=== PATIENT | male | born 1990 | race African-American/Black ===

== ENCOUNTER 2017-10-21 14:00 | Inpatient (IN) | payer MEDICAID, MEDICARE ==
[~2017-10-21 14:00] MED LIST: BENZ1TAB PO; DIVA250ER PO; HALO5 PO; LEXA10TA PO
[2017-10-21 14:21] VITALS: BP 126/73; PULSE 78; RESP 18; TEMP 98.5; O2SAT 98
--- NOTE | 2017-10-21 15:32 | PD ---
HPI Chief Complaint: Psychiatric Symptoms Time Seen by Provider: 15:31 Travel History International Travel<30 days: No Contact w/Intl Traveler<30days: No Traveled to known affect area: No History of Present Illness HPI 27-year-old male came to the emergency room with history schizophrenia not taking his medications. Blood test was started in triage. Patient denies of any suicidal ideations or homicidal ideations. Vital signs are stable. Patient denies doing any drugs. [facility] Past Medical History Narrative Medical List of his past medical, surgical, social and family history reviewed from the nursing note. Bipolar Disorder: Yes Cardiovascular Problems: No Musculoskeletal: No Neurologic: No Respiratory: No Schizophrenia: Yes Social History Alcohol Use: Yes Tobacco Use: Yes Substance Use: Yes (POT-JESUS) Allergies-Medications (Allergen,Severity, Reaction): Coded Allergies: No Known Allergies (Unverified , 09/01/12) Comments No known drug allergies Reported Meds & Prescriptions Reported Meds & Active Scripts Active Reported Lexapro (Escitalopram Oxalate) 10 Mg Tab 10 Mg PO DAILY Divalproex ER (Divalproex Sodium) 250 Mg Irina 750 Mg PO HS Benztropine (Benztropine Mesylate) 0.5 Mg Tab 2 Mg PO BID Haloperidol 5 Mg Tab 5 Mg PO TID Narrative Medication List of his home medications reviewed from the nursing note. Review of Systems Except as stated in HPI: all other systems reviewed are Neg Physical Exam Narrative GENERAL: Awake, alert, no obvious distress SKIN: Focused skin assessment warm/dry. HEAD: Atraumatic. Normocephalic. EYES: Pupils equal and round. No scleral icterus. No injection or drainage. ENT: No nasal bleeding or discharge. Mucous membranes pink and moist. NECK: Trachea midline. No JVD. CARDIOVASCULAR: Regular rate and rhythm. No murmur appreciated. RESPIRATORY: No accessory muscle use. Clear to auscultation. Breath sounds equal bilaterally. GASTROINTESTINAL: Abdomen soft, non-tender, nondistended. Hepatic and splenic margins not palpable. MUSCULOSKELETAL: No obvious deformities. No clubbing. No cyanosis. No edema. NEUROLOGICAL: Awake and alert. No obvious cranial nerve deficits. Motor grossly within normal limits. Normal speech. PSYCHIATRIC: Appropriate mood and affect; insight and judgment normal. Data Data Last Documented VS Orders Orders Complete Blood Count With Diff (10/21/17 14:22) Thyroid Stimulating Hormone (10/21/17 14:22) Basic Metabolic Panel (Bmp) (10/21/17 14:22) Psych Screen (10/21/17 14:22) Drug Screen, Random Urine (10/21/17 14:22) Alcohol (Ethanol) (10/21/17 14:22) Acetaminophen (Tylenol) (10/21/17 16:15) Diet Regular Basic (10/21/17 Dinner) Admit Order (Ed Use Only) (10/21/17 22:32) Labs Laboratory Tests Test 10/21/17 15:49 White Blood Count 6.8 TH/MM3 Red Blood Count 4.98 MIL/MM3 Hemoglobin 15.4 GM/DL Hematocrit 44.9 % Mean Corpuscular Volume 90.1 FL Mean Corpuscular Hemoglobin 30.9 PG Mean Corpuscular Hemoglobin Concent 34.3 % Red Cell Distribution Width 14.4 % Platelet Count 311 TH/MM3 Mean Platelet Volume 7.7 FL Neutrophils (%) (Auto) 49.5 % Lymphocytes (%) (Auto) 39.1 % Monocytes (%) (Auto) 7.2 % Eosinophils (%) (Auto) 2.9 % Basophils (%) (Auto) 1.3 % Neutrophils # (Auto) 3.3 TH/MM3 Lymphocytes # (Auto) 2.6 TH/MM3 Monocytes # (Auto) 0.5 TH/MM3 Eosinophils # (Auto) 0.2 TH/MM3 Basophils # (Auto) 0.1 TH/MM3 CBC Comment DIFF FINAL Differential Comment Blood Urea Nitrogen 5 MG/DL Creatinine 1.05 MG/DL Random Glucose 84 MG/DL Calcium Level 9.0 MG/DL Sodium Level 139 MEQ/L Potassium Level 4.1 MEQ/L Chloride Level 107 MEQ/L Carbon Dioxide Level 25.8 MEQ/L Anion Gap 6 MEQ/L Estimat Glomerular Filtration Rate 101 ML/MIN Thyroid Stimulating Hormone 3rd Gen 1.090 uIU/ML Urine Opiates Screen NEG Urine Barbiturates Screen NEG Urine Amphetamines Screen NEG Urine Benzodiazepines Screen NEG Urine Cocaine Screen NEG Urine Cannabinoids Screen NEG Ethyl Alcohol Level LESS THAN 3 MG/DL MDM Medical Decision Making Medical Screen Exam Complete: Yes Emergency Medical Condition: Yes Medical Record Reviewed: Yes Differential Diagnosis Psychosis Narrative Course 4:04 PM waiting for the blood test results. Patient will require psych screen after that once medically cleared. Procedures EKG Prior to Arrival: No Getachew,Shravanti R. MD Oct 21, 2017 15:32
[2017-10-21] MEDS ORDERED: DIVA250T3 PO (15:42)
[2017-10-21] MEDS ORDERED: BENZ0.5T PO (15:42)
[2017-10-21] MEDS ORDERED: LEXA10TA PO (15:42)
[2017-10-21] MEDS ORDERED: HALO5TAB PO (15:42)
[2017-10-21] MEDS ORDERED: ACETAMINOPHEN 325 MG TAB PO ONE (16:15)
[2017-10-21 16:50] VITALS: BP 114/75; PULSE 58; RESP 17; O2SAT 95
[2017-10-21 16:51] LABS: AUTOMATED NEUTROPHIL # 3.3 TH/MM3 (1.8-7.7); BASOPHIL # 0.1 TH/MM3 (0-0.2); BASOPHIL % 1.3 % (0.0-2.0); EOSINOPHIL # 0.2 TH/MM3 (0-0.4); EOSINOPHIL % 2.9 % (0.0-4.0); HEMATOCRIT 44.9 % (39.0-51.0); HEMOGLOBIN 15.4 GM/DL (13.0-17.0); LYMPH % 39.1 % (9.0-44.0); LYMPHOCYTE # 2.6 TH/MM3 (1.0-4.8); MEAN CELL VOLUME 90.1 FL (80.0-100.0); MEAN CORPUSCULAR HEMOGLOBIN 30.9 PG (27.0-34.0); MEAN CORPUSCULAR HGB CONC 34.3 % (32.0-36.0); MEAN PLATELET VOLUME 7.7 FL (7.0-11.0); MONO % 7.2 % (0.0-8.0); MONOCYTE # 0.5 TH/MM3 (0-0.9); NEUT % 49.5 % (16.0-70.0); PLATELET COUNT 311 TH/MM3 (150-450); RED BLOOD COUNT 4.98 MIL/MM3 (4.50-5.90); RED CELL DISTRIBUTION WIDTH 14.4 % (11.6-17.2); WHITE BLOOD COUNT 6.8 TH/MM3 (4.0-11.0)
[2017-10-21 17:13] LABS: BICARBONATE 25.8 MEQ/L (21.0-32.0); BLOOD UREA NITROGEN 5 MG/DL (7-18); CHLORIDE 107 MEQ/L (98-107); CREATININE 1.05 MG/DL (0.60-1.30); GLOMERULAR FILTRATION RATE 101 ML/MIN (>89); GLUCOSE,RANDOM 84 MG/DL (74-106); SODIUM (NA) 139 MEQ/L (136-145)
--- NOTE | 2017-10-21 17:39 | PD ---
Data Data Last Documented VS Vital Signs Date Time Temp Pulse Resp B/P (MAP) Pulse Ox O2 Delivery O2 Flow Rate FiO2 10/21/17 16:50 58 17 114/75 (88) 95 Room Air 10/21/17 14:21 98.5 Orders Orders Complete Blood Count With Diff (10/21/17 14:22) Thyroid Stimulating Hormone (10/21/17 14:22) Basic Metabolic Panel (Bmp) (10/21/17 14:22) Psych Screen (10/21/17 14:22) Drug Screen, Random Urine (10/21/17 14:22) Alcohol (Ethanol) (10/21/17 14:22) Acetaminophen (Tylenol) (10/21/17 16:15) Labs Laboratory Tests Test 10/21/17 15:49 White Blood Count 6.8 TH/MM3 Red Blood Count 4.98 MIL/MM3 Hemoglobin 15.4 GM/DL Hematocrit 44.9 % Mean Corpuscular Volume 90.1 FL Mean Corpuscular Hemoglobin 30.9 PG Mean Corpuscular Hemoglobin Concent 34.3 % Red Cell Distribution Width 14.4 % Platelet Count 311 TH/MM3 Mean Platelet Volume 7.7 FL Neutrophils (%) (Auto) 49.5 % Lymphocytes (%) (Auto) 39.1 % Monocytes (%) (Auto) 7.2 % Eosinophils (%) (Auto) 2.9 % Basophils (%) (Auto) 1.3 % Neutrophils # (Auto) 3.3 TH/MM3 Lymphocytes # (Auto) 2.6 TH/MM3 Monocytes # (Auto) 0.5 TH/MM3 Eosinophils # (Auto) 0.2 TH/MM3 Basophils # (Auto) 0.1 TH/MM3 CBC Comment DIFF FINAL Differential Comment Blood Urea Nitrogen 5 MG/DL Creatinine 1.05 MG/DL Random Glucose 84 MG/DL Calcium Level 9.0 MG/DL Sodium Level 139 MEQ/L Potassium Level 4.1 MEQ/L Chloride Level 107 MEQ/L Carbon Dioxide Level 25.8 MEQ/L Anion Gap 6 MEQ/L Estimat Glomerular Filtration Rate 101 ML/MIN Thyroid Stimulating Hormone 3rd Gen 1.090 uIU/ML Urine Opiates Screen NEG Urine Barbiturates Screen NEG Urine Amphetamines Screen NEG Urine Benzodiazepines Screen NEG Urine Cocaine Screen NEG Urine Cannabinoids Screen NEG Ethyl Alcohol Level LESS THAN 3 MG/DL [facility] [place] Supervised Visit with MONALISA: No Narrative Course The patient was initially evaluated by the previous provider and signed out to me at approximately 5:00 PM pending labs for medical clearance for psychiatric evaluation. See her note for further details. Briefly this is a 27-year-old male with history of bipolar disorder who is here voluntarily for psychiatric evaluation for visual and auditory hallucinations. He denies suicidal or homicidal ideation. On exam he is resting comfortably. Appears abnormal insight and normal judgment. No physical complaints. Labs reviewed and the patient is medically cleared for psychiatric evaluation and disposition by them. Diagnosis Primary Impression: Medical clearance for psychiatric admission John Reyes MD Oct 21, 2017 17:38
[2017-10-21 23:10] VITALS: BP 112/81; PULSE 58; RESP 18; TEMP 98.1; O2SAT 100
[2017-10-22] MEDS ORDERED: ALUMINUM/MAGNESIUM/SIMETH 30 ML CUP PO PRN (00:15)
[2017-10-22] MEDS ORDERED: diphenhydrAMINE HCL 50 MG/ML VIAL - HS PRN IM (00:15)
[2017-10-22] MEDS ORDERED: MAGNESIUM HYDROXIDE SUSP 30 ML CUP PO PRN (00:15)
[2017-10-22] MEDS ORDERED: DIVALPROEX SODIUM E.R. 250 MG TAB PO ONE (00:30)
[2017-10-22] MEDS ORDERED: HALOPERIDOL 10 MG TAB PO ONE (00:30)
[2017-10-22] MEDS: diphenhydrAMINE HCL 50 MG CAP - HS PRN PO ×2 (00:49→21:16)
[2017-10-22 05:32] VITALS: BP 125/74; PULSE 62; RESP 18; TEMP 98.4; O2SAT 96
[2017-10-22 06:03] VITALS: BP 125/74; PULSE 62; RESP 18; TEMP 98.4; O2SAT 96
--- NOTE | 2017-10-22 08:52 | HHI.HP ---
Provisional Diagnosis Admission Date Oct 21, 2017 at 22:34 [place] I. 1. Schizoaffective disorder, bipolar type, acute exacerbation [place] II. Deferred Certification of Person's Competence To Provide Express and Informed Consent I have personally examined Anjum GiangJr , a person being served at [facility] on, Oct 22, 2017 08:51. Express and informed consent means consent voluntarily given in writing, by a competent person, after sufficient explanation and disclosure of the subject matter involved to enable the person to make a knowing and willful decision without any element of force, fraud, deceit, duress, or other form of constraint or coercion. This person is 18 years of age or older, is not now known to be incompetent to consent to treatment with a guardian advocate, and does not have a health care surrogate or proxy currently making medical treatment decisions. I have found this person to be one of the following: [x] Competent to provide express and informed consent, as defined above, for voluntary admission to this facility and is competent to provide express and informed consent for treatment. He/she has the consistent capacity to make well reasoned, willful, and knowing decisions concerning his or her medical or mental health treatment. The person fully and consistently understands the purpose of the admission for examination/placement and is fully capable of personally exercising all rights [place] Incompetent to provide express and informed consent to voluntary admission, and this is incompetent to provide express and informed consent to treatment. The person must be transferred to involuntary status and a petition for a guardian advocate filed with the Circuit Court. [] Refusing to provide express and informed consent to voluntary admission but is competent to provide express and informed consent for treatment. The person must be discharged or transferred to involuntary status. Form shall be completed within 24 hours of a person's arrival at the receiving facility and filed in the clinical record of each person: 1. Admitted on a voluntary basis 2. Permitted to provide express and informed consent to his/her own treatment 3. Allowed to transfer from involuntary to voluntary status 4. Prior to permitting a person to consent to his or her own treatment after having been previously found incompetent to consent to treatment. History of Present Illness Capacity: Has Capacity Psych Chief Complaint: Psychosis HPI Mr. Giang is a 27-year-old male with a reported history of bipolar disorder /schizophrenia who presented to the emergency department voluntarily complaining of audiovisual hallucinations. Reviewing the electronic medical record, I note that the patient was psychiatrically admitted here in [address] Alcaraz with a discharge diagnosis of schizoaffective disorder. Patient seen and examined with nurse. Chart reviewed. Case discussed with nursing staff. On my examination today, the patient reports that he has been off of his psychotropic medications for the last 2 months. In the setting of this medication nonadherence he has experienced worsening of his psychosis. He reports that he has been experiencing deprecatory auditory hallucinations as well as occasional command auditory hallucinations to self injure. He denies any command auditory hallucinations to hurt others. He denies any genuine suicidal intent and contracts for safety on the inpatient unit. He denies any other hallucinatory experiences except that he does note that he has what sounds like synesthesia, experiencing generalized body pain in response to loud noises. He endorses some paranoia but denies any ideas of reference or feelings of thought manipulation. Mood has been up and down lately. Sleep is poor, particularly in the last several nights. No hypomanic or manic symptoms noted. No severe depressive symptoms noted. Denies any homicidal ideation. Remainder of the psychiatric ROS is negative. No physical complaints. Past psychiatric history: The patient reports previous diagnoses as noted above. He previously followed at the [facility] in [place] although he has apparently been out of treatment for several months at least. His most recent admission was here at [facility]. He denies a history of suicide attempts. Denies a history of violent behavior. He notes that he has been "the best I' ve ever been" when he was taking Haldol 5 mg 3 times daily, Depakote 750 mg a day, Lexapro at uncertain dose and Cogentin 2 mg twice a day. He notes that this regimen "stopped all the voices." He has never been on a long-acting injectable antipsychotic, and I did ask him to consider this option for this hospitalization. Family history: The patient reports that his father has schizophrenia. He denies any family history of suicide or substance use issues. Chemical dependency history: The patient denies any abuse of drugs or alcohol. Social history: The patient is originally from [facility]. He is presently homeless. He apparently had been residing with a female cousin but they are "not getting along." He has some college education. He is on SSI. He denies any history. Denies any legal history. Denies any access to guns or firearms. Denies any mu-ism or spiritual beliefs. Denies any history of physical, verbal or sexual abuse. Review of Systems Except as stated in HPI: all other systems reviewed are Neg Past Family Social History Coded Allergies: No Known Allergies (Unverified , 09/01/12) Past Medical History Patient denies any past medical history Reported Medications Escitalopram (Lexapro) 10 Mg Tab, 10 MG PO DAILY, #30 TAB 0 Refills 10/21/17 Divalproex ER (Divalproex ER) 250 Mg Irina, 750 MG PO HS for Control Seizures, # 90 TAB 0 Refills 10/21/17 Benztropine (Benztropine) 0.5 Mg Tab, 2 MG PO BID, #60 TAB 0 Refills 10/21/17 Haloperidol (Haloperidol) 5 Mg Tab, 5 MG PO TID, TAB 0 Refills 10/21/17 Current Medications Medications (Trade) Dose Ordered Sig/Saul Route Start Time Stop Time Status Last Admin (Atarax) 50 mg Q6H PRN PO 10/22/17 00:15 (Benadryl) 50 mg HS PRN PO 10/22/17 00:15 10/22/17 00:49 (Tylenol) 650 mg Q4H PRN PO 10/22/17 00:15 (Milk Of Magnesia Liq) 30 ml DAILY PRN PO 10/22/17 00:15 (Mag-Al Plus Susp Liq) 30 ml Q6H PRN PO 10/22/17 00:15 (Habitrol 21 Mg Patch.24 Hr) 1 patch DAILY T-DERMAL 10/22/17 09:00 Miscellaneous Information 1 HS T-DERMAL 10/22/17 21:00 (Lexapro) 10 mg DAILY PO 10/22/17 09:00 (Depakote Er) 750 mg HS PO 10/22/17 21:00 (Haldol) 5 mg DAILY@0900,1500,2100 PO 10/22/17 09:00 (Cogentin) 2 mg Q12HR PO 10/22/17 09:00 Patient's Strengths (min. 2) In a monitored setting. Verbally fluent. Physical Exam Physical examination completed by ED provider. On my examination today, the patient appears to be in no acute physical distress. No motor abnormalities noted. Labs and vitals reviewed: Vital Signs Vital Signs Date Time Temp Pulse Resp B/P (MAP) Pulse Ox O2 Delivery O2 Flow Rate FiO2 10/22/17 06:03 98.4 62 18 125/74 (91) 96 10/21/17 16:50 Room Air Lab Results Item Value Date Time White Blood Count 6.8 TH/MM3 10/21/17 1549 Hemoglobin 15.4 GM/DL 10/21/17 1549 Platelet Count 311 TH/MM3 10/21/17 1549 Sodium Level 139 MEQ/L 10/21/17 1549 Potassium Level 4.1 MEQ/L 10/21/17 1549 Chloride Level 107 MEQ/L 10/21/17 1549 Carbon Dioxide Level 25.8 MEQ/L 10/21/17 1549 Blood Urea Nitrogen 5 MG/DL L 10/21/17 1549 Creatinine 1.05 MG/DL 10/21/17 1549 Estimat Glomerular Filtration Rate 101 ML/MIN 10/21/17 1549 Thyroid Stimulating Hormone 3rd Gen 1.090 uIU/ML 10/21/17 1549 Urine Opiates Screen NEG 10/21/17 1549 Urine Barbiturates Screen NEG 10/21/17 1549 Urine Amphetamines Screen NEG 10/21/17 1549 Urine Benzodiazepines Screen NEG 10/21/17 1549 Urine Cocaine Screen NEG 10/21/17 1549 Urine Cannabinoids Screen NEG 10/21/17 1549 Ethyl Alcohol Level LESS THAN 3 MG/DL 10/21/17 1549 EKG reveals sinus rhythm with first-degree AV block. QTc is 395 ms, not prolonged. Mental Status Examination Appearance: Appropriate Consciousness: Alert Orientation: x4 Motor Activity: Other (no motor abnormalities noted) Speech: Unremarkable Language: Adequate Fund of Knowledge: Adequate Attention and Concentration: Adequate Memory: Unremarkable Mood: Other (up-and-down) Affect: Blunt Thought Process & Associations: Intact, Logical, Linear Thought Content: Appropriate Hallucination Type: Auditory (deprecatory, occasional command as noted above) Delusion Type: Paranoid Suicidal Ideation: Yes Suicidal Plan: No Suicidal Intention: No (contracts for safety on the inpatient unit) Homicidal Ideation: No Homicidal Plan: No Homicidal Intention: No Insight: Fair Judgment: Impulsive Assessment & Plan Problem List: (1) Schizoaffective disorder, bipolar type ICD Codes: F25.0 - Schizoaffective disorder, bipolar type Assessment & Plan 27-year-old male with psychiatric history as detailed above presently voluntarily admitted to the inpatient psychiatric unit. On my examination today , the patient reports worsening of psychotic symptoms including occasional command auditory hallucinations to self injure in the setting of medication nonadherence. The patient reports that he has done very well in the past on a regimen of Haldol, Depakote and Lexapro. I will plan to admit the patient to the inpatient unit for safety, observation and stabilization. Admit inpatient. Voluntary status. Haldol 5 mg 3 times daily for psychotic symptoms. To consider long-acting injectable Haldol Decanoate. Cogentin 2 mg twice daily for side effect management. Depakote ER 750 mg at bedtime for mood stabilization. Platelets okay. Check LFTs. Lexapro 10 mg daily for mood. Atarax as needed for anxiety, Benadryl as needed for sleep. R/B/A for all meds reviewed with patient. Lipid panel and hemoglobin A1c in the morning. OT eval. Vitals every shift. Counselor to see and obtain collateral. Encourage participation in groups and unit activities. Disposition planning. Estimated length of stay: 3-5 days. Discharge Planning Pending psychiatric stabilization Request HC Surrog/Guard Advoc?: No Jacky Szymanski MD Oct 22, 2017 08:52
[2017-10-22] MEDS ORDERED: HALOPERIDOL 5 MG TAB PO SCH (09:00)
[2017-10-22] MEDS ORDERED: NICOTINE 21 MG/24 HR PATCH T-DERMAL SCH (09:00)
--- NOTE | 2017-10-22 10:12 | EKG ---
Date Performed: 10/22/2017 Time Performed: 09:39:43 PTAGE: 27 years EKG: SINUS BRADYCARDIA WITH FIRST DEGREE AV BLOCK ABNORMAL ECG NO PREVIOUS TRACING DOCTOR: Jose Song Interpretating Date/Time 10/22/2017 10:11:16
[2017-10-22] MEDS: ESCITALOPRAM OXALATE 10 MG TAB PO SCH (10:33)
[2017-10-22] MEDS: BENZTROPINE MESYLATE 2 MG TAB PO SCH ×2 (10:33→20:20)
[2017-10-22] MEDS: HALOPERIDOL 5 MG TAB PO SCH ×3 (10:33→20:22)
[2017-10-22 12:49] LABS: ALBUMIN 3.9 GM/DL (3.4-5.0); DIRECT BILIRUBIN ADULT 0.1 MG/DL (0.0-0.2)
[2017-10-22 12:52] LABS: INDIRECT BILIRUBIN 0.2 MG/DL (0.0-0.8); TOTAL BILIRUBIN ADULT 0.3 MG/DL (0.2-1.0); TOTAL PROTEIN 7.7 GM/DL (6.4-8.2)
[2017-10-22 17:49] VITALS: BP 126/91; PULSE 71; RESP 18; TEMP 97.4; O2SAT 100
[2017-10-22] MEDS: hydrOXYzine HCL 50 MG TAB PO PRN (17:54)
[2017-10-22] MEDS: ACETAMINOPHEN 325 MG TAB PO PRN (17:55)
[2017-10-22] MEDS: DIVALPROEX SODIUM E.R. 250 MG TAB PO SCH (20:22)
[2017-10-22] MEDS: REMOVE OLD NICOTINE PATCH T-DERMAL SCH (20:25)
[2017-10-22] MEDS ORDERED: HALOPERIDOL 10 MG TAB PO SCH (21:00)
[2017-10-23] MEDS: hydrOXYzine HCL 50 MG TAB PO PRN (00:48)
[2017-10-23 06:13] VITALS: BP 115/83; PULSE 88; RESP 20; TEMP 97.6; O2SAT 99
--- NOTE | 2017-10-23 08:24 | HHI.PYPN ---
Subjective Chief Complaint: Psychosis Remarks Patient seen and examined with nurse. Chart reviewed. Case discussed with nursing staff. On my examination today, the patient seems to be in fairly good spirits. He denies any suicidal or homicidal ideation. He denies any audiovisual hallucinations presently but says as recently as this morning he was experiencing deprecatory auditory hallucinations "laughing and shit at me." He complains of feeling a little bit groggy from medications but otherwise denies side effects. Complains of lesion in left armpit. No other physical complaints. Review of Systems Except as stated in HPI: all other systems reviewed are Neg Mental Status Examination Appearance: Appropriate Consciousness: Alert Orientation: x4 Motor Activity: Other (no hand tremor, no cogwheeling, no other motor abnormalities noted.) Speech: Unremarkable Language: Adequate Fund of Knowledge: Adequate Attention and Concentration: Adequate Memory: Unremarkable Mood: Appropriate Affect: Appropriate Thought Process & Associations: Intact, Logical, Linear Thought Content: Appropriate Hallucination Type: Auditory (this morning deprecatory, noncommand) Delusion Type: None Suicidal Ideation: No Suicidal Plan: No Suicidal Intention: No Homicidal Ideation: No Homicidal Plan: No Homicidal Intention: No Insight: Fair Judgment: Impulsive Results Labs Test 10/22/17 12:07 Total Bilirubin 0.3 MG/DL Direct Bilirubin 0.1 MG/DL Indirect Bilirubin 0.2 MG/DL Aspartate Amino Transf (AST/SGOT) 16 U/L Alanine Aminotransferase (ALT/SGPT) 19 U/L Alkaline Phosphatase 76 U/L Total Protein 7.7 GM/DL Albumin 3.9 GM/DL Labs reviewed. Hemoglobin A1c presently pending. Vitals/IOs Vital Signs Date Time Temp Pulse Resp B/P (MAP) Pulse Ox O2 Delivery O2 Flow Rate FiO2 10/23/17 06:13 97.6 88 20 115/83 (94) 99 10/21/17 16:50 Room Air Assessment & Plan Problem List: (1) Schizoaffective disorder, bipolar type ICD Codes: F25.0 - Schizoaffective disorder, bipolar type Assessment & Plan Continue Haldol, Lexapro and Depakote as ordered. If psychotic symptoms do not resolve with current dose of Haldol, to consider titrating the dose. To consider long-acting injectable antipsychotic. Plan to check a Depakote and ammonia level over the weekend. Consulted the hospitalist regarding axillary lesion. Continue to monitor on an inpatient unit. Continue other medications and care as ordered. Justification for Cont. Inpt. Risk for decompensation in less restrictive environment. Discharge Planning Pending psychiatric stabilization. Request HC Surrog/Guard Advoc?: No Jacky Szymanski MD Oct 23, 2017 08:24
[2017-10-23] MEDS: HALOPERIDOL 5 MG TAB PO SCH ×3 (09:02→20:12)
[2017-10-23] MEDS: ESCITALOPRAM OXALATE 10 MG TAB PO SCH (09:02)
[2017-10-23] MEDS: BENZTROPINE MESYLATE 2 MG TAB PO SCH ×2 (09:02→20:12)
[2017-10-23 09:03] LABS: CHOLESTEROL 211 MG/DL (120-200)
[2017-10-23 09:05] LABS: CHOLESTEROL/ HDL RATIO 3.38 RATIO; HDL CHOLESTEROL 62.3 MG/DL (40.0-60.0); LDL CHOLESTEROL 128 MG/DL (0-99); TRIGLYCERIDES 105 MG/DL (42-150)
[2017-10-23] MEDS: NICOTINE 21 MG/24 HR PATCH T-DERMAL PRN (09:08)
--- NOTE | 2017-10-23 13:04 | PD.CONS ---
[facility] By DR VISHAL MONROE Reason for Consult LEFT AXILLARY AREA Primary Care Physician No Primary Care Physician Diagnoses: (1) Left axillary swelling (2) Schizoaffective disorder, bipolar type History of Present Illness Patient is a 27-year-old -[place] male that we have been asked to see regarding a left axillary lesion. Patient presented to the hospital with history of schizophrenia and apparently his medications patient has been admitted for adjustment of his medications by psychiatry we have been asked to consult regarding medical management regarding this left axillary lesion. Patient states he has previously had one in the right axillary region that went away with washing and using deodorant. This one on the left has been going on for about 4 weeks he states it is not gone away. Still slightly tender. We will place him on oral antibiotics. And see if this improves Review of Systems Constitutional: DENIES: Diaphoretic episodes, Fatigue, Fever, Weight gain, Weight loss, Chills, Dizziness, Change in appetite, Night Sweats Endocrine: DENIES: Heat/cold intolerance, Polydipsia, Polyuria, Polyphagia Eyes: DENIES: Blurred vision, Diplopia, Eye inflammation, Eye pain, Vision loss , Photosensitivity Ears, nose, mouth, throat: DENIES: Tinnitus, Hearing loss, Vertigo, Nasal discharge, Oral lesions, Throat pain, Hoarseness, Ear Pain, Running Nose Respiratory: DENIES: Apneas, Cough, Snoring, Wheezing, Hemoptysis, Sputum production, Shortness of breath Cardiovascular: DENIES: Chest pain, Palpitations, Syncope, Dyspnea on Exertion , PND, Lower Extremity Edema, Orthopnea Gastrointestinal: DENIES: Abdominal pain, Black stools, Bloody stools, Constipation, Diarrhea, Vomiting Musculoskeletal: DENIES: Joint pain, Muscle aches, Stiffness, Joint Swelling, Back pain, Neck pain Integumentary: COMPLAINS OF: Abnormal pigmentation, DENIES: Nail changes, Pruritus, Rash Hematologic/lymphatic: COMPLAINS OF: Lymphadenopathy (Left axillary region), DENIES: Bruising Immunologic/allergic: DENIES: Eczema, Urticaria Neurologic: DENIES: Abnormal gait, Headache, Localized weakness, Paresthesias, Seizures, Speech Problems, Tremor, Poor Balance Psychiatric: COMPLAINS OF: Anxiety, Confusion, Mood changes, Depression Except as stated in HPI: all other systems reviewed are Neg Past Family Social History Allergies: Coded Allergies: No Known Allergies (Unverified , 09/01/12) Past Medical History Schizophrenia Psychiatric disorder Past Surgical History Denies Reported Medications Reported Meds & Active Scripts Active Reported Lexapro (Escitalopram Oxalate) 10 Mg Tab 10 Mg PO DAILY Divalproex ER (Divalproex Sodium) 250 Mg Irina 750 Mg PO HS Benztropine (Benztropine Mesylate) 0.5 Mg Tab 2 Mg PO BID Haloperidol 5 Mg Tab 5 Mg PO TID Active Ordered Medications Current Medications Acetaminophen (Tylenol) 650 mg ONCE ONCE PO Last administered on 10/21/17at 16: 50; Start 10/21/17 at 16:15; Stop 10/21/17 at 16:16; Status DC Hydroxyzine HCl (Atarax) 50 mg Q6H PRN PO ANXIETY Last administered on at 00:48; Start 10/22/17 at 00:15 Diphenhydramine HCl (Benadryl) 50 mg HS PRN PO INSOMNIA Last administered on 10/22/17at 21:16; Start 10/22/17 at 00:15 Diphenhydramine HCl (Benadryl Inj) 50 mg HS PRN IM INSOMNIA; Start 10/22/17 at 00:15; Stop 10/22/17 at 08:49; Status DC Acetaminophen (Tylenol) 650 mg Q4H PRN PO Pain 1-5 or Temp >101F Last administered on 10/22/17at 17:55; Start 10/22/17 at 00:15 Magnesium Hydroxide (Milk Of Magnesia Liq) 30 ml DAILY PRN PO CONSTIPATION; Start 10/22/17 at 00:15 Al Hydrox/Mg Hydrox/Simethicone (Mag-Al Plus Susp Liq) 30 ml Q6H PRN PO DYSPEPSIA; Start 10/22/17 at 00:15 Nicotine (Habitrol 21 Mg Patch.24 Hr) 1 patch DAILY T-DERMAL ; Start 10/22/17 at 09:00; Stop 10/22/17 at 09:00; Status DC Miscellaneous Information 1 HS T-DERMAL ; Start 10/22/17 at 21:00 Haloperidol (Haldol) 5 mg DAILY PO ; Start 10/22/17 at 09:00; Stop 10/22/17 at 09: 00; Status DC Haloperidol (Haldol) 10 mg NOW ONCE PO Last administered on 10/22/17 00:49; Start 10/22/17 at 00:30; Stop 10/22/17 at 00:31; Status DC Haloperidol (Haldol) 10 mg HS PO ; Start 10/22/17 at 21:00; Stop 10/22/17 at 21:00 ; Status DC Escitalopram Oxalate (Lexapro) 10 mg DAILY PO Last administered on 10/23/17 09: 02; Start 10/22/17 at 09:00 Divalproex Sodium (Depakote Er) 750 mg NOW ONCE PO Last administered on 00:49; Start 10/22/17 at 00:30; Stop 10/22/17 at 00:31; Status DC Divalproex Sodium (Depakote Er) 750 mg HS PO Last administered on 10/22/17 20: 22; Start 10/22/17 at 21:00 Haloperidol (Haldol) 5 mg DAILY@0900,1500,2100 PO Last administered on 09:02; Start 10/22/17 at 09:00 Benztropine Mesylate (Cogentin) 2 mg Q12HR PO Last administered on 10/23/17 09: 02; Start 10/22/17 at 09:00 Nicotine (Habitrol 21 Mg Patch.24 Hr) 1 patch DAILY PRN T-DERMAL Nicotine craving Last administered on 10/23/17 09:08; Start 10/22/17 at 09:00 Family History Father has schizophrenia Social History Marijuana and "JESUS" Currently homeless Physical Exam Vital Signs Vital Signs Date Time Temp Pulse Resp B/P (MAP) Pulse Ox O2 Delivery O2 Flow Rate FiO2 10/23/17 06:13 97.6 88 20 115/83 (94) 99 10/22/17 17:49 97.4 71 18 126/91 (103) 100 Physical Exam GENERAL: This is a well-nourished, well-developed patient, in no apparent distress. SKIN: No rashes, ecchymoses or lesions. Cool and dry. Left axillary lesion approximately half a centimeter by 2 cm with some tenderness no drainage HEAD: Atraumatic. Normocephalic. No temporal or scalp tenderness. EYES: Pupils equal round and reactive. Extraocular motions intact. No scleral icterus. No injection or drainage. ENT: Nose without bleeding, purulent drainage or septal hematoma. Throat without erythema, tonsillar hypertrophy or exudate. Uvula midline. Airway patent. NECK: Trachea midline. No JVD or lymphadenopathy. Supple, nontender, no meningeal signs. CARDIOVASCULAR: Regular rate and rhythm without murmurs, gallops, or rubs. RESPIRATORY: Clear to auscultation. Breath sounds equal bilaterally. No wheezes , rales, or rhonchi. GASTROINTESTINAL: Abdomen soft, non-tender, nondistended. No hepato-splenomegaly , or palpable masses. No guarding. MUSCULOSKELETAL: Extremities without clubbing, cyanosis, or edema. No joint tenderness, effusion, or edema noted. No calf tenderness. Negative Homans sign bilaterally. NEUROLOGICAL: Awake and alert. Cranial nerves II through XII intact. Motor and sensory grossly within normal limits. Five out of 5 muscle strength in all muscle groups. Normal speech. Insight and judgment is limited Mood and behavior somewhat appropriate Laboratory Laboratory Tests Test 10/23/17 07:25 Triglycerides Level 105 Cholesterol Level 211 LDL Cholesterol 128 HDL Cholesterol 62.3 Cholesterol/HDL Ratio 3.38 Result Diagram: 10/21/17 1549 10/21/17 1549 Assessment and Plan Assessment and Plan Left axillary lesion possible cellulitis/early abscess without drainage will start on Augmentin will add Lactinex We will add Lactinex to prevent risk of diarrhea Psychiatric disorder deferred to psychiatry We will be available as needed But will sign off Please reconsult for any other issues Code Status Full code Discussed Condition With RN and patient Miguel A Quinn DO Oct 23, 2017 13:04
[2017-10-23] MEDS: AMOXICILLIN/CLAVULANATE K 875 MG TAB PO SCH ×2 (15:22→20:12)
[2017-10-23 16:51] LABS: HEMOGLOBIN A1C 5.5 % (4.3-6.0)
[2017-10-23] MEDS: LACTOBACILLUS ACIDOPHILUS TAB PO SCH (17:28)
[2017-10-23 17:42] VITALS: BP 127/86; PULSE 73; RESP 14; TEMP 97.8; O2SAT 99
[2017-10-23] MEDS: REMOVE OLD NICOTINE PATCH T-DERMAL SCH (19:52)
[2017-10-23] MEDS: DIVALPROEX SODIUM E.R. 250 MG TAB PO SCH (20:12)
[2017-10-23] MEDS: diphenhydrAMINE HCL 50 MG CAP - HS PRN PO (21:47)
[2017-10-24] MEDS: hydrOXYzine HCL 50 MG TAB PO PRN (00:30)
[2017-10-24 05:18] VITALS: BP 116/72; PULSE 79; RESP 16; TEMP 98; O2SAT 98
[2017-10-24] MEDS: AMOXICILLIN/CLAVULANATE K 875 MG TAB PO SCH ×2 (09:00→21:05)
[2017-10-24] MEDS: ESCITALOPRAM OXALATE 10 MG TAB PO SCH (09:33)
[2017-10-24] MEDS: BENZTROPINE MESYLATE 2 MG TAB PO SCH ×2 (09:33→21:05)
[2017-10-24] MEDS: HALOPERIDOL 5 MG TAB PO SCH (09:33)
[2017-10-24] MEDS: LACTOBACILLUS ACIDOPHILUS TAB PO SCH ×3 (09:34→17:03)
--- NOTE | 2017-10-24 10:18 | HHI.PYPN ---
Subjective Chief Complaint: Psychosis Remarks Patient seen and examined with nurse. Chart reviewed. Case discussed with nursing staff. Nurse reports that patient did articulate some CAH to hurt self to the night nurse. Case discussed in treatment team. On my exam today, patient denies that he experienced any CAH overnight. He denies any AVH and denies any CAH now. He denies any SI or HI. Sleep is somewhat poor, and patient continues to complain of feeling groggy from medications. We discuss options to improve this side effect and settle on adjustment of Haldol dosing. I have suggested to patient that if adjustment in dosing is not successful, may need to consider replacing this agent with a less sedating antipsychotic. No physical complaints. Review of Systems Except as stated in HPI: all other systems reviewed are Neg Mental Status Examination Appearance: Appropriate Consciousness: Alert Orientation: x4 Motor Activity: Other (no abnormal motor movements noted) Speech: Unremarkable Language: Adequate Fund of Knowledge: Adequate Attention and Concentration: Adequate Memory: Unremarkable Mood: Appropriate Affect: Appropriate Thought Process & Associations: Intact, Logical, Linear Thought Content: Appropriate Hallucination Type: None Delusion Type: None Suicidal Ideation: No Suicidal Plan: No Suicidal Intention: No Homicidal Ideation: No Homicidal Plan: No Homicidal Intention: No Insight: Fair Judgment: Impulsive Results Labs Labs reviewed. Vitals/IOs Vital Signs Date Time Temp Pulse Resp B/P (MAP) Pulse Ox O2 Delivery O2 Flow Rate FiO2 10/24/17 05:18 98.0 79 16 116/72 (87) 98 10/21/17 16:50 Room Air Intake and Output 10/24/17 10/24/17 10/25/17 08:00 16:00 00:00 Intake Total 360 ml Balance 360 ml Assessment & Plan Problem List: (1) Schizoaffective disorder, bipolar type ICD Codes: F25.0 - Schizoaffective disorder, bipolar type Assessment & Plan Adjust Haldol dosing to 5 mg in the morning and 10 mg at bedtime. Continue Depakote and Lexapro as ordered. Depakote and ammonia level ordered for over the weekend. Hospitalist input noted and appreciated. Continue to monitor on inpatient unit. Continue other medications and care as ordered. Justification for Cont. Inpt. Medication adjustment. Risk for decompensation in less restrictive environment. Discharge Planning Pending psychiatric stabilization Request HC Surrog/Guard Advoc?: No Jacky Szymanski MD Oct 24, 2017 10:18
[2017-10-24] MEDS: ACETAMINOPHEN 325 MG TAB PO PRN (14:38)
--- NOTE | 2017-10-24 15:04 | PD.TTN ---
Patient Problems 1. Discharge planning 2. Medication compliance 3. Knowledge deficit 4. Lack of coping skills Progress Toward Goals Provider Present: Dr. Obdulio Szymanski Provider Input: Med compliant, needs to stay on meds, needs [facility] Nurse(s) Present: No Nurse Present Psychiatric Counselors Present: Pauline Ruvalcaba LCSW Psych Therapist Input: Wants placement, refer to [facility]. Came to Psychotherapy Group Group Spec/RT/OT/FAUSTIN Present: LUZ Hilario, Justus Rose, OT Group Spec/RT/OT/FAUSTIN Input: 10/24/17: Patient attends select group activities. patient is quiet, calm and pleasant. Isolates to himself Discharge Plan Discharge in planning stages by Patients Counselor. Paula Perez Oct 24, 2017 15:04
[2017-10-24 18:07] VITALS: BP 117/72; PULSE 72; RESP 18; TEMP 98.2; O2SAT 99
[2017-10-24] MEDS: REMOVE OLD NICOTINE PATCH T-DERMAL SCH (20:10)
[2017-10-24] MEDS: HALOPERIDOL 10 MG TAB PO SCH (21:05)
[2017-10-24] MEDS: DIVALPROEX SODIUM E.R. 250 MG TAB PO SCH (21:05)
[2017-10-25 06:00] VITALS: BP 143/89; PULSE 72; RESP 18; TEMP 97.6; O2SAT 97
[2017-10-25] MEDS: ESCITALOPRAM OXALATE 10 MG TAB PO SCH (08:14)
[2017-10-25] MEDS: AMOXICILLIN/CLAVULANATE K 875 MG TAB PO SCH ×2 (08:15→21:26)
[2017-10-25] MEDS: LACTOBACILLUS ACIDOPHILUS TAB PO SCH ×3 (08:15→18:11)
[2017-10-25] MEDS: BENZTROPINE MESYLATE 2 MG TAB PO SCH ×2 (08:15→21:26)
[2017-10-25] MEDS: HALOPERIDOL 5 MG TAB PO SCH (08:18)
[2017-10-25] MEDS: diphenhydrAMINE HCL 50 MG CAP - HS PRN PO (10:40)
--- NOTE | 2017-10-25 15:20 | HHI.PYPN ---
Subjective Chief Complaint: Psychosis Remarks Pt seen and discussed with staff. He c/o of poor sleep. He c/o of AH to RN but denies during MD interview. He is anxious and has been staying isolated to his room, only coming out for meals. He reports depression is improving. No SI/HI Mental Status Examination Appearance: Appropriate Consciousness: Alert Orientation: x4 Motor Activity: Other (no abnormal motor movements noted) Speech: Unremarkable Language: Adequate Fund of Knowledge: Adequate Attention and Concentration: Adequate Memory: Unremarkable Mood: Anxious Affect: Appropriate Thought Process & Associations: Intact, Logical, Linear Thought Content: Appropriate Hallucination Type: None (denies, does not appear to be internally stimulated) Delusion Type: None Suicidal Ideation: No Suicidal Plan: No Suicidal Intention: No Homicidal Ideation: No Homicidal Plan: No Homicidal Intention: No Insight: Fair Judgment: Impulsive Results Vitals/IOs Vital Signs Date Time Temp Pulse Resp B/P (MAP) Pulse Ox O2 Delivery O2 Flow Rate FiO2 10/25/17 06:00 97.6 72 18 143/89 (107) 97 10/21/17 16:50 Room Air Assessment & Plan Problem List: (1) Schizoaffective disorder, bipolar type ICD Codes: F25.0 - Schizoaffective disorder, bipolar type Assessment & Plan Continue current tx plan. Pt has prn medication available for sleep and was made aware of that. Estimated LOS: days Justification for Cont. Inpt. risk of decompensation Request HC Surrog/Guard Advoc?: Shannon March MD Oct 25, 2017 15:20
[2017-10-25 18:04] VITALS: BP 111/62; PULSE 82; RESP 18; TEMP 98.2; O2SAT 98
[2017-10-25] MEDS: REMOVE OLD NICOTINE PATCH T-DERMAL SCH (20:21)
[2017-10-25] MEDS: HALOPERIDOL 10 MG TAB PO SCH (21:25)
[2017-10-25] MEDS: DIVALPROEX SODIUM E.R. 250 MG TAB PO SCH (21:26)
[2017-10-26 06:00] VITALS: BP 116/66; PULSE 65; RESP 17; TEMP 97.6; O2SAT 97
[2017-10-26] MEDS: BENZTROPINE MESYLATE 2 MG TAB PO SCH ×2 (08:16→21:02)
[2017-10-26] MEDS: ESCITALOPRAM OXALATE 10 MG TAB PO SCH (08:16)
[2017-10-26] MEDS: LACTOBACILLUS ACIDOPHILUS TAB PO SCH ×3 (08:16→17:40)
[2017-10-26] MEDS: AMOXICILLIN/CLAVULANATE K 875 MG TAB PO SCH ×2 (08:16→21:02)
[2017-10-26] MEDS: HALOPERIDOL 5 MG TAB PO SCH (08:16)
--- NOTE | 2017-10-26 15:50 | HHI.PYPN ---
Subjective Chief Complaint: Psychosis Remarks Pt seen and discussed with staff. He slept well last night. This morning was observed responding to internal stimuli with strange gestures and admitted to having . He denies medication side effects. No SI/HI Mental Status Examination Appearance: Appropriate Consciousness: Alert Orientation: x4 Motor Activity: Other (no abnormal motor movements noted) Speech: Unremarkable Language: Adequate Fund of Knowledge: Adequate Attention and Concentration: Adequate Memory: Unremarkable Mood: Anxious Affect: Appropriate Thought Process & Associations: Intact, Logical, Linear Thought Content: Appropriate Hallucination Type: Auditory Delusion Type: None Suicidal Ideation: No Suicidal Plan: No Suicidal Intention: No Homicidal Ideation: No Homicidal Plan: No Homicidal Intention: No Insight: Fair Judgment: Impulsive Results Labs Test 10/26/17 07:40 10/26/17 07:50 Ammonia 42 MCMOL/L Valproic Acid (Depakene) Level 65 MCG/ML Vitals/IOs Vital Signs Date Time Temp Pulse Resp B/P (MAP) Pulse Ox O2 Delivery O2 Flow Rate FiO2 10/26/17 06:00 97.6 65 17 116/66 (83) 97 Assessment & Plan Problem List: (1) Schizoaffective disorder, bipolar type ICD Codes: F25.0 - Schizoaffective disorder, bipolar type Assessment & Plan Continue current tx plan. Estimated LOS: days Justification for Cont. Inpt. risk of decompensation Request HC Surrog/Guard Advoc?: Shannon March MD Oct 26, 2017 15:50
[2017-10-26 16:58] VITALS: BP 116/72; PULSE 91; RESP 18; TEMP 98.6; O2SAT 98
[2017-10-26] MEDS: REMOVE OLD NICOTINE PATCH T-DERMAL SCH (21:00)
[2017-10-26] MEDS: HALOPERIDOL 10 MG TAB PO SCH (21:01)
[2017-10-26] MEDS: DIVALPROEX SODIUM E.R. 250 MG TAB PO SCH (21:02)
[2017-10-27 05:46] VITALS: BP 113/66; PULSE 68; RESP 18; TEMP 97.8; O2SAT 96
[2017-10-27] MEDS: BENZTROPINE MESYLATE 2 MG TAB PO SCH ×2 (08:48→20:30)
[2017-10-27] MEDS: HALOPERIDOL 5 MG TAB PO SCH (08:48)
[2017-10-27] MEDS: LACTOBACILLUS ACIDOPHILUS TAB PO SCH ×3 (08:48→17:59)
[2017-10-27] MEDS: AMOXICILLIN/CLAVULANATE K 875 MG TAB PO SCH (08:48)
[2017-10-27] MEDS: ESCITALOPRAM OXALATE 10 MG TAB PO SCH (08:48)
[2017-10-27] MEDS: hydrOXYzine HCL 50 MG TAB PO PRN (11:33)
--- NOTE | 2017-10-27 11:44 | HHI.PYPN ---
Subjective Chief Complaint: Psychosis Remarks Patient seen and examined. Chart reviewed. Case discussed with nursing staff. On my examination today, patient feels that he is doing well overall. He denies any SI or HI. He denies any AVH. He continues to complain of some mild fatigue from medications, but he declines any changes to medication regimen at this time. Denies any other medication side effects. Complains of difficulty initiating urine stream when voiding, although he is able to void. We discussed possible medications contributing to this, not least of which the Cogentin, but patient declines adjustment here as well. I did group therapy counselor him on the risks of urinary retention and increased post-void residual, should he have one. No other physical complaints. Review of Systems Except as stated in HPI: all other systems reviewed are Neg Mental Status Examination Appearance: Appropriate Consciousness: Alert Orientation: x4 Motor Activity: Other (no motor abnormalities noted) Speech: Unremarkable Language: Adequate Fund of Knowledge: Adequate Attention and Concentration: Adequate Memory: Unremarkable Mood: Appropriate Affect: Appropriate Thought Process & Associations: Intact, Logical, Linear Thought Content: Appropriate Hallucination Type: None Delusion Type: None Suicidal Ideation: No Suicidal Plan: No Suicidal Intention: No Homicidal Ideation: No Homicidal Plan: No Homicidal Intention: No Insight: Adequate Judgment: Adequate Results Labs Labs reviewed. Depakote level 65 spuriously high because of incorrect timing of lab. Ammonia level somewhat elevated, no overt signs of hyperammonemic encephalopathy, although may be contributing to patient's c/o fatigue. I will start Carnitor and recheck. Vitals/IOs Vital Signs Date Time Temp Pulse Resp B/P (MAP) Pulse Ox O2 Delivery O2 Flow Rate FiO2 10/27/17 05:46 97.8 68 18 113/66 (82) 96 Assessment & Plan Problem List: (1) Schizoaffective disorder, bipolar type ICD Codes: F25.0 - Schizoaffective disorder, bipolar type Assessment & Plan Continue Haldol, Depakote and Lexapro as ordered. Patient declines long-acting injectable Haldol Decanoate. Initiate Carnitor for hyperammonemia. R/B/A for medication changes discussed with patient. Plan to check a Depakote and ammonia level later in the week. Check a urinalysis. Check a post void residual. I will ask the hospitalist to follow up on patient's complaints of urinary hesitancy. Continue to monitor on the inpatient unit. Continue other medications and care as ordered. Justification for Cont. Inpt. Risk for decompensation in less restrictive environment. Discharge Planning Placement. Case discussed with counselor. Request HC Surrog/Guard Advoc?: No Jacky Szymanski MD Oct 27, 2017 11:44
[2017-10-27] MEDS: NICOTINE 21 MG/24 HR PATCH T-DERMAL PRN (11:46)
--- NOTE | 2017-10-27 14:18 | HHI.PR ---
Subjective Remarks The patient said that he had a hard time getting a stream of urine going. He said that once it did start it was normal. He said he believes it might be secondary to medications. This has happened to him along time ago. He still indicates soreness of his left armpit. Discussed with nursing. Objective Vitals Vital Signs Date Time Temp Pulse Resp B/P (MAP) Pulse Ox O2 Delivery O2 Flow Rate FiO2 10/27/17 05:46 97.8 68 18 113/66 (82) 96 10/26/17 16:58 98.6 91 18 116/72 (87) 98 Objective Remarks GENERAL: This is a well-nourished, well-developed patient, in no apparent distress. SKIN: Left axillary lesion approximately half a centimeter, fluctuant, and with small amount of purulent drainage. HEAD: Atraumatic. Normocephalic. No temporal or scalp tenderness. EYES: Pupils equal round and reactive. Extraocular motions intact. No scleral icterus. No injection or drainage. ENT: Nose without bleeding, purulent drainage or septal hematoma. Throat without erythema, tonsillar hypertrophy or exudate. Uvula midline. Airway patent. NECK: Trachea midline. No JVD or lymphadenopathy. Supple, nontender, no meningeal signs. CARDIOVASCULAR: Regular rate and rhythm without murmurs, gallops, or rubs. RESPIRATORY: Clear to auscultation. Breath sounds equal bilaterally. No wheezes , rales, or rhonchi. GASTROINTESTINAL: Abdomen soft, non-tender, nondistended. No hepato-splenomegaly , or palpable masses. No guarding. MUSCULOSKELETAL: Extremities without clubbing, cyanosis, or edema. No joint tenderness, effusion, or edema noted. NEUROLOGICAL: Awake and alert. Cranial nerves II through XII intact. Motor and sensory grossly within normal limits. Five out of 5 muscle strength in all muscle groups. Normal speech. Medications and IVs Current Medications Medications (Trade) Dose Ordered Sig/Saul Route Start Time Stop Time Status Last Admin (Atarax) 50 mg Q6H PRN PO 10/22/17 00:15 10/27/17 11:33 (Benadryl) 50 mg HS PRN PO 10/22/17 00:15 10/25/17 10:40 (Tylenol) 650 mg Q4H PRN PO 10/22/17 00:15 10/24/17 14:38 (Milk Of Magnesia Liq) 30 ml DAILY PRN PO 10/22/17 00:15 (Mag-Al Plus Susp Liq) 30 ml Q6H PRN PO 10/22/17 00:15 Miscellaneous Information 1 HS T-DERMAL 10/22/17 21:00 (Lexapro) 10 mg DAILY PO 10/22/17 09:00 10/27/17 08:48 (Depakote Er) 750 mg HS PO 10/22/17 21:00 10/26/17 21:02 (Cogentin) 2 mg Q12HR PO 10/22/17 09:00 10/27/17 08:48 (Habitrol 21 Mg Patch.24 Hr) 1 patch DAILY PRN T-DERMAL 10/22/17 09:00 10/27/17 11:46 (Lactinex) 1 tab TID PO 10/23/17 18:00 10/27/17 13:48 (Haldol) 5 mg DAILY PO 10/25/17 09:00 10/27/17 08:48 (Haldol) 10 mg HS PO 10/24/17 21:00 10/26/17 21:01 (Carnitor 10% Liq) 3 ml DAILY@0900,1500,2100 PO 10/27/17 15:00 (Bactrim Ds 800-160 Mg) 1 tab Q12HR PO 10/27/17 14:15 UNV A/P Problem List: (1) Left axillary swelling ICD Code: M79.89 - Other specified soft tissue disorders (2) Schizoaffective disorder, bipolar type ICD Code: F25.0 - Schizoaffective disorder, bipolar type Assessment and Plan Left axillary lesion Possible early abscess with mild drainage. - change Augmentin to Bactrim DS. Continue Lactinex. - wound culture and gram stain. - warm compresses BID. - if no improvement in the next couple of days would consult surgery for I&D. Urinary hesitation May be s/t meds. - agree with UA and bladder scan. Add GC/ chlamydia PCR. - hold hydroxyzine and Benadryl. - start Flomax. - Pastor/ straight cath if no improvement. Psychiatric disorder The pt is currently calm. - care per psychiatry. PPx: Ambulation Vish Lopez DO Oct 27, 2017 14:18
[2017-10-27] MEDS: SULFAMETHOXAZOLE-TRIMETHOPRIM DS 800-160 MG TAB PO SCH ×2 (15:22→20:30)
[2017-10-27] MEDS: TAMSULOSIN HCL 0.4 MG CAP PO SCH (15:22)
[2017-10-27] MEDS: levOCARNitine 10% ORAL SOLN 118 ML BTL PO SCH ×2 (15:22→20:59)
[2017-10-27 15:25] VITALS: BP 117/72; PULSE 65; RESP 18; TEMP 98.2; O2SAT 99
[2017-10-27 16:12] LABS: BILIRUBIN, URINE NEG (NEG); BLOOD, URINE NEG (NEG); GLUCOSE,URINE NEG (NEG); KETONE, URINE NEG (NEG); NITRITE,URINE NEG (NEG); PH, URINE 7.5 (5.0-8.5); SQUAMOUS EPITHELIAL CELL URINE <1 /hpf (0-5); URINE COLOR LIGHT-YELLOW (YELLW/STRAW); URINE LEUKOCYTE ESTERASE NEG (NEG)
[2017-10-27] MEDS: REMOVE OLD NICOTINE PATCH T-DERMAL SCH (20:30)
[2017-10-27] MEDS: HALOPERIDOL 10 MG TAB PO SCH (20:30)
[2017-10-27] MEDS: DIVALPROEX SODIUM E.R. 250 MG TAB PO SCH (20:30)
[2017-10-28 06:29] VITALS: BP 116/75; PULSE 78; RESP 18; TEMP 97.8; O2SAT 98
[2017-10-28] MEDS: TAMSULOSIN HCL 0.4 MG CAP PO SCH (08:41)
[2017-10-28] MEDS: SULFAMETHOXAZOLE-TRIMETHOPRIM DS 800-160 MG TAB PO SCH ×2 (08:41→20:58)
[2017-10-28] MEDS: HALOPERIDOL 5 MG TAB PO SCH (08:41)
[2017-10-28] MEDS: ESCITALOPRAM OXALATE 10 MG TAB PO SCH (08:41)
[2017-10-28] MEDS: LACTOBACILLUS ACIDOPHILUS TAB PO SCH ×3 (08:41→18:13)
[2017-10-28] MEDS: BENZTROPINE MESYLATE 2 MG TAB PO SCH (08:41)
[2017-10-28] MEDS: levOCARNitine 10% ORAL SOLN 118 ML BTL PO SCH ×3 (08:41→21:24)
--- NOTE | 2017-10-28 09:48 | PD.TTN ---
Patient Problems 1. Discharge planning 2. Medication compliance 3. Knowledge deficit 4. Lack of coping skills Progress Toward Goals Provider Present: Dr. Obdulio Szymanski Provider Input: 10/28/17 - Patient is being monitored for urinary retention. Counselor will follow-up with Clinton Bass and Vicky Schwab regarding placement. 11/03/17 - Med compliant, needs to stay on meds, needs SNF Nurse(s) Present: No Nurse Present Psychiatric Counselors Present: Pauline Ruvalcaba LCSW, SHERYL Cerna Psych Therapist Input: 10/28/17 - counselor will follow-up with [facility] regarding placement. 10/24/17 - Wants placement, refer to [facility]. Came to Psychotherapy Group Group Spec/RT/OT/FAUSTIN Present: LUZ Hilario, Justus Rose, OT Group Spec/RT/OT/FAUSTIN Input: 10/28/17 - Patient participates in select groups. 10/24/17: Patient attends select group activities. patient is quiet, calm andpleasant. Isolates to himself Discharge Plan SMA Discharge in planning stages by Patients Counselor. Documentation Scribe: SHERYL Cerna Date Resolved: Oct 28, 2017 Ingrid Pittman Oct 28, 2017 09:48
--- NOTE | 2017-10-28 10:29 | HHI.PYPN ---
Subjective Chief Complaint: Psychosis Remarks Patient seen and examined. Chart reviewed. Case discussed with nursing staff. Case discussed in treatment team. Patient seen yesterday by hospitalist for urinary retention and started on Flomax. Nursing has not yet been able to secure bladder scanner for PVR. TALITA yu. On my exam, patient continues to complain of some grogginess from medications and ongoing urinary hesitancy. Hospitalist put Benadryl and Atarax on hold, but Cogentin is likely contributing to hesitancy as well. We discuss switching to a different, less sedating antipsychotic with lower liability for EPS in hopes of both ameliorating the grogginess and doing away with need for Cogentin. We settle on a trial of Abilify. Patient denies any SI/HI or AVH presently, although he was reportedly experiencing some AH last night. No other physical complaints or medication side effects. Review of Systems Except as stated in HPI: all other systems reviewed are Neg Mental Status Examination Appearance: Appropriate Consciousness: Alert Orientation: x4 Motor Activity: Other (no abnormal motor movements noted) Speech: Unremarkable Language: Adequate Fund of Knowledge: Adequate Attention and Concentration: Adequate Memory: Unremarkable Mood: Appropriate Affect: Blunt Thought Process & Associations: Intact, Logical, Linear Thought Content: Appropriate Hallucination Type: None Delusion Type: None Suicidal Ideation: No Suicidal Plan: No Suicidal Intention: No Homicidal Ideation: No Homicidal Plan: No Homicidal Intention: No Insight: Adequate Judgment: Adequate Results Labs Test 10/27/17 14:05 Urine Color LIGHT-YELLOW Urine Turbidity CLEAR Urine pH 7.5 Urine Specific [place] 1.010 Urine Protein NEG mg/dL Urine Glucose (UA) NEG mg/dL Urine Ketones NEG mg/dL Urine Occult Blood NEG Urine Nitrite NEG Urine Bilirubin NEG Urine Urobilinogen LESS THAN 2.0 MG/DL Urine Leukocyte Esterase NEG Urine WBC 2 /hpf Urine Squamous Epithelial Cells <1 /hpf Microscopic Urinalysis Comment CULT NOT INDICATED Chlamydia trachomatis DNA (PCR) NOT DETECTED Neisseria gonorrhoeae DNA (PCR) NOT DETECTED Date/Time Source Procedure Growth Status 10/27/17 14:45 Wound Arm Gram Stain - Final Resulted 10/27/17 14:45 Wound Arm Wound Culture Pending Resulted Labs reviewed. UA aimee. Vitals/IOs Vital Signs Date Time Temp Pulse Resp B/P (MAP) Pulse Ox O2 Delivery O2 Flow Rate FiO2 10/28/17 06:29 97.8 78 18 116/75 (78) 98 Assessment & Plan Problem List: (1) Schizoaffective disorder, bipolar type ICD Codes: F25.0 - Schizoaffective disorder, bipolar type Assessment & Plan Discontinue Haldol and scheduled Cogentin. Start Abilify 5 mg daily with plans to titrate to 10 mg daily tomorrow. I will also make Cogentin available as needed for EPS. Continue other psychotropics as ordered. Follow-up post void residual once this has been obtained. Case discussed with nursing. Hospitalist input noted and appreciated. Continue to monitor on the inpatient unit. Continue other medication care as ordered. Justification for Cont. Inpt. Medication changes. Risk for decompensation in less restrictive environment. Discharge Planning Counselor is working on placement Request HC Surrog/Guard Advoc?: No Jacky Szymanski MD Oct 28, 2017 10:29
[2017-10-28] MEDS ORDERED: BENZTROPINE MESYLATE 2 MG/2 ML VIAL IM PRN (10:30)
[2017-10-28] MEDS ORDERED: BENZTROPINE MESYLATE 1 MG TAB PO PRN (10:30)
[2017-10-28] MEDS: ARIPiprazole 5 MG TAB PO SCH (11:49)
[2017-10-28] MEDS: NICOTINE 21 MG/24 HR PATCH T-DERMAL PRN (16:45)
[2017-10-28 18:12] VITALS: BP 122/66; PULSE 83; RESP 18; TEMP 98.1; O2SAT 99
[2017-10-28] MEDS: DIVALPROEX SODIUM E.R. 250 MG TAB PO SCH (20:58)
[2017-10-28] MEDS: REMOVE OLD NICOTINE PATCH T-DERMAL SCH (20:59)
[2017-10-28] MEDS: LORazepam 0.5 MG TAB PO PRN (21:44)
[2017-10-29 06:00] VITALS: BP 106/67; PULSE 77; RESP 17; TEMP 97.2; O2SAT 98
[2017-10-29] MEDS: TAMSULOSIN HCL 0.4 MG CAP PO SCH (08:41)
[2017-10-29] MEDS: ARIPiprazole 5 MG TAB PO SCH (08:41)
[2017-10-29] MEDS: LACTOBACILLUS ACIDOPHILUS TAB PO SCH ×3 (08:41→16:52)
[2017-10-29] MEDS: ESCITALOPRAM OXALATE 10 MG TAB PO SCH (08:41)
[2017-10-29] MEDS: SULFAMETHOXAZOLE-TRIMETHOPRIM DS 800-160 MG TAB PO SCH ×2 (08:41→20:27)
[2017-10-29] MEDS: levOCARNitine 10% ORAL SOLN 118 ML BTL PO SCH ×3 (08:49→20:28)
--- NOTE | 2017-10-29 10:57 | HHI.PYPN ---
Subjective Chief Complaint: Psychosis Remarks Patient seen and examined. Chart reviewed. Case discussed with nursing staff. On my examination today, the patient seems much more alert and says that the Abilify is much less sedating than the Haldol but works just as well. He reports decreasing frequency of auditory hallucinations, noncommand, and he denies any suicidal or homicidal ideation. I can elicit no mood symptoms, and the patient's affect seems much brighter and more reactive today. He does continue to complain of some urinary hesitancy, perhaps a little improved but has no other physical complaints. No other medication side effects. Review of Systems Except as stated in HPI: all other systems reviewed are Neg Mental Status Examination Appearance: Appropriate Consciousness: Alert Orientation: x4 Motor Activity: Other (no hand tremor, no cogwheeling, no dystonias, no dyskinesias, no other motor abnormalities noted) Speech: Unremarkable Language: Adequate Fund of Knowledge: Adequate Attention and Concentration: Adequate Memory: Unremarkable Mood: Appropriate, Good Affect: Appropriate (full and reactive) Thought Process & Associations: Intact, Logical, Linear Thought Content: Appropriate Hallucination Type: Auditory (minimal, infrequent, noncommand) Delusion Type: None Suicidal Ideation: No Suicidal Plan: No Suicidal Intention: No Homicidal Ideation: No Homicidal Plan: No Homicidal Intention: No Insight: Adequate Judgment: Adequate Results Labs Date/Time Source Procedure Growth Status 10/27/17 14:45 Wound Arm Gram Stain - Final Resulted 10/27/17 14:45 Wound Arm Wound Culture - Preliminary NO GROWTH IN 24 HOURS. Resulted Labs reviewed Vitals/IOs Vital Signs Date Time Temp Pulse Resp B/P (MAP) Pulse Ox O2 Delivery O2 Flow Rate FiO2 10/29/17 06:00 97.2 77 17 106/67 (80) 98 Intake and Output 10/29/17 10/29/17 10/30/17 08:00 16:00 00:00 Intake Total 480 ml Balance 480 ml Assessment & Plan Problem List: (1) Schizoaffective disorder, bipolar type ICD Codes: F25.0 - Schizoaffective disorder, bipolar type Assessment & Plan Patient is tolerating the Abilify much better than the Haldol, and his psychotic symptoms remain well controlled. Continue Abilify as presently ordered. Continue other psychotropics as ordered. Continue to monitor on the inpatient unit. I have asked the nurse to have the hospitalist follow-up on patient's urinary hesitancy. Continue other medications and care as ordered. Justification for Cont. Inpt. Final discharge planning Discharge Planning Case discussed with counselor. Possible discharge to assisted living facility tomorrow, . Request HC Surrog/Guard Advoc?: No Jacky Szymanski MD Oct 29, 2017 10:57
[2017-10-29] MEDS: LORazepam 0.5 MG TAB PO PRN ×2 (13:33→21:28)
--- NOTE | 2017-10-29 15:03 | HHI.PR ---
Subjective Remarks Follow-up visit for urinary retention and left axilla abscess. Patient seen and examined in his room. Reports that urinary hesitancy has improved however still there. He states that this is the second time that he has had this problem when started on psychiatric medications. He is able to void without any dysuria, hematuria, or suprapubic pain. He reports left axilla abscess still there, unchanged for 1 month in size. He reports that area is tender, no increased drainage or warmth. He denies any fevers, chills, nausea, vomiting, diarrhea or headaches. Discussed with nurse, post voiding residuals negative. Objective Vitals Vital Signs Date Time Temp Pulse Resp B/P (MAP) Pulse Ox O2 Delivery O2 Flow Rate FiO2 10/29/17 06:00 97.2 77 17 106/67 (80) 98 10/28/17 18:12 98.1 83 18 122/66 (84) 99 I/O 10/28/17 10/28/17 10/28/17 10/29/17 10/29/17 10/29/17 07:00 15:00 23:00 07:00 15:00 23:00 Intake Total 480 ml Balance 480 ml Intake Oral 480 ml Objective Remarks GENERAL: This is a well-nourished, well-developed patient, in no apparent distress. SKIN: Left axillary lesion approximately half a centimeter, fluctuant. HEAD: Atraumatic. EYES: Pupils equal round and reactive. ENT: Throat without erythema, tonsillar hypertrophy or exudate. Uvula midline. Airway patent. NECK: Trachea midline. CARDIOVASCULAR: Regular rate and rhythm without murmurs, gallops, or rubs. RESPIRATORY: Clear to auscultation. Breath sounds equal bilaterally. No wheezes , rales, or rhonchi. GASTROINTESTINAL: Abdomen soft, non-tender. MUSCULOSKELETAL: Extremities without clubbing, cyanosis, or edema. NEUROLOGICAL: Awake and alert. Moves all extremities, ambulating without assistance. Normal speech. A/P Problem List: (1) Left axillary swelling ICD Code: M79.89 - Other specified soft tissue disorders (2) Schizoaffective disorder, bipolar type ICD Code: F25.0 - Schizoaffective disorder, bipolar type Assessment and Plan Left axillary lesion Possible early abscess with mild drainage. - On Bactrim DS. Continue Lactinex. - wound culture and gram stain positive for Propionibacterium Acnes. Hold off on switching antibiotics until I&D cultures done. Patient afebrile. - Will consult GS for possible I&D at bedside, discussed with patient. If not done before D/C home can have done as outpatient. Urinary hesitation May be s/t meds. - UA negative, GC/ chlamydia PCR negative. PVR negative - Continue to hold hydroxyzine and Benadryl. - Hesitancy improved - Continue Flomax. Psychiatric disorder - care per psychiatry. PPx: Ambulation Plan discussed with patient and nurse per Aroldo Nielson Oct 29, 2017 15:03
--- NOTE | 2017-10-29 15:53 | RADRPT ---
EXAM DATE/TIME: 10/29/2017 15:28 [facility] COMPARISON: No previous studies available for comparison. INDICATIONS : Rule out TB. MEDICAL HISTORY : None. SURGICAL HISTORY : None. ENCOUNTER: Initial ACUITY: 1 day PAIN SCORE: 0/10 LOCATION: Bilateral chest FINDINGS: A single view of the chest demonstrates the lungs to be symmetrically aerated without evidence of mas s, infiltrate or effusion. The cardiomediastinal contours are unremarkable. Osseous structures are intact. CONCLUSION: 1. No acute cardiopulmonary disease. Geovany Hurley MD on October 29, 2017 at 15:51 Board Certified Radiologist. This report was verified electronically.
[2017-10-29] MEDS: NICOTINE 21 MG/24 HR PATCH T-DERMAL PRN (16:53)
[2017-10-29] MEDS ORDERED: LIDOCAINE 1%/EPINEPHrine 1:100,000 SOLN 20 ML VIAL INFIL ONE (17:15)
[2017-10-29] MEDS ORDERED: LIDOCAINE 1%/EPINEPHrine 1:100,000 SOLN 30 ML VIAL INFIL ONE (18:00)
[2017-10-29 18:06] VITALS: BP 123/82; PULSE 100; RESP 18; TEMP 98.1; O2SAT 100
--- NOTE | 2017-10-29 18:35 | PD.CONS ---
cc: Loy Moyer MD HPI Service General Surgery Consult Requested By Dr. Szymanski Reason for Consult LEFT axillary abscess evaluate for I&D Primary Care Physician No Primary Care Physician History of Present Illness This is a 27 year old male with a past medical history of schizophrenia who has been hospitalized in the inpatient psych unit since October 21. He reports that he has had several abscesses in his bilateral axillary regions over the past few years. He has never had any medical attention for them. He first noticed the abscess in his LEFT axillary about 10 days ago. He has been draining a small amount of pus for a few days now. On admission he had laboratory work which revealed a normal WBC of 6.8. He denies any fever or chills. He has been started on Bactrim. A General Surgery consultation has been requested. Review of Systems Constitutional: DENIES: Fatigue, Dizziness, Change in appetite Endocrine: DENIES: Polydipsia, Polyuria, Polyphagia Eyes: DENIES: Diplopia, Eye inflammation Ears, nose, mouth, throat: DENIES: Hearing loss Respiratory: DENIES: Apneas Cardiovascular: DENIES: Chest pain, Lower Extremity Edema Gastrointestinal: DENIES: Abdominal pain, Nausea, Vomiting Genitourinary: DENIES: Urgency Musculoskeletal: DENIES: Joint pain Integumentary: DENIES: Abnormal pigmentation Hematologic/lymphatic: DENIES: Bruising Immunologic/allergic: DENIES: Eczema Neurologic: DENIES: Abnormal gait, Headache Psychiatric: DENIES: Confusion, Agitation Past Family Social History Past Medical History Schizophrenia Past Surgical History Femur repair in [place] Reported Medications Divalproex ER Lexapro Haldol Benztropine Allergies: Coded Allergies: No Known Allergies (Unverified , 09/01/12) Active Ordered Medications Current Medications Medications (Trade) Dose Ordered Sig/Saul Route Start Time Stop Time Status Last Admin (Tylenol) 650 mg Q4H PRN PO 10/22/17 00:15 10/24/17 14:38 (Milk Of Magnesia Liq) 30 ml DAILY PRN PO 10/22/17 00:15 (Mag-Al Plus Susp Liq) 30 ml Q6H PRN PO 10/22/17 00:15 Miscellaneous Information 1 HS T-DERMAL 10/22/17 21:00 10/28/17 20:59 (Lexapro) 10 mg DAILY PO 10/22/17 09:00 10/29/17 08:41 (Depakote Er) 750 mg HS PO 10/22/17 21:00 10/28/17 20:58 (Habitrol 21 Mg Patch.24 Hr) 1 patch DAILY PRN T-DERMAL 10/22/17 09:00 10/29/17 16:53 (Lactinex) 1 tab TID PO 10/23/17 18:00 10/29/17 16:52 (Carnitor 10% Liq) 3 ml DAILY@0900,1500,2100 PO 10/27/17 15:00 10/29/17 13:35 (Bactrim Ds 800-160 Mg) 1 tab Q12HR PO 10/27/17 14:15 10/29/17 08:41 (Flomax) 0.4 mg DAILY PO 10/27/17 15:00 10/29/17 08:41 (Cogentin) 1 mg Q12HR PRN PO 10/28/17 10:30 (Cogentin Inj) 1 mg Q12HR PRN IM 10/28/17 10:30 (Abilify) 10 mg Taper DAILY PO 10/28/17 10:30 11/08/17 10:29 10/29/17 08:41 (Ativan) 0.5 mg Q6H PRN PO 10/28/17 14:00 10/29/17 13:33 Family History Non contributory Social History Denies tobacco use Denies ETOH use Physical Exam Vital Signs Vital Signs Date Time Temp Pulse Resp B/P (MAP) Pulse Ox O2 Delivery O2 Flow Rate FiO2 10/29/17 18:06 98.1 100 18 123/82 (96) 100 10/29/17 06:00 97.2 77 17 106/67 (80) 98 Physical Exam GENERAL: Pleasant 27 year old male resting in bed in no acute distress. SKIN: RIGHT axillary: normal; LEFT axillary: small draining abscess HEAD: Atraumatic. Normocephalic. EYES: Pupils equal and round. No scleral icterus. No injection or drainage. ENT: No nasal bleeding or discharge. Mucous membranes pink and moist. NECK: Trachea midline. CARDIOVASCULAR: Regular rate and rhythm. RESPIRATORY: No accessory muscle use. Clear to auscultation. Breath sounds equal bilaterally. GASTROINTESTINAL: Abdomen soft, non-tender, nondistended. Hepatic and splenic margins not palpable. MUSCULOSKELETAL: Extremities without clubbing, cyanosis, or edema. No obvious deformities. NEUROLOGICAL: Awake and alert. No obvious cranial nerve deficits. Motor grossly within normal limits. Five out of 5 muscle strength in the arms and legs. Normal speech. PSYCHIATRIC: Appropriate mood and affect; insight and judgment normal. Laboratory Date/Time Source Procedure Growth Status 10/27/17 14:45 Wound Arm Gram Stain - Final Complete 10/27/17 14:45 Wound Culture - Final Propionibacterium Acnes Complete Assessment and Plan Assessment and Plan 27 year old male with LEFT axillary abscess; ? of Hidradenitis suppurativa -Regular diet -Plan for bedside drainage of LEFT axillary abscess tomorrow at bedside -Obtain consents -Obtain supplies -Procedure explained and all questions answered -Patient reports he plans to be DCed to a RETIREMENT -I highly recommend patient have outpatient referral to a Plastic Surgeon as likely this is Hidradenitis and will continue to be an issues until treated--- discussed with Aroldo CANTU -Thank you for this consult; We will continue to follow Discussed Condition With Quin Del Rio Dr./First Maricel CANTU Oct 29, 2017 18:35
[2017-10-29] MEDS: DIVALPROEX SODIUM E.R. 250 MG TAB PO SCH (20:28)
[2017-10-29] MEDS: REMOVE OLD NICOTINE PATCH T-DERMAL SCH (20:31)
[2017-10-30] MEDS: ACETAMINOPHEN 325 MG TAB PO PRN (01:38)
[2017-10-30] MEDS: LORazepam 0.5 MG TAB PO PRN (05:11)
[2017-10-30 05:15] VITALS: BP 112/63; PULSE 84; RESP 16; TEMP 98; O2SAT 98
[2017-10-30] MEDS: ESCITALOPRAM OXALATE 10 MG TAB PO SCH (08:38)
[2017-10-30] MEDS: SULFAMETHOXAZOLE-TRIMETHOPRIM DS 800-160 MG TAB PO SCH (08:39)
[2017-10-30] MEDS: levOCARNitine 10% ORAL SOLN 118 ML BTL PO SCH (08:39)
[2017-10-30] MEDS: TAMSULOSIN HCL 0.4 MG CAP PO SCH (08:39)
[2017-10-30] MEDS: LACTOBACILLUS ACIDOPHILUS TAB PO SCH ×2 (08:39→13:04)
[2017-10-30] MEDS: ARIPiprazole 5 MG TAB PO SCH (08:39)
[2017-10-30] MEDS ORDERED: ARIP1TAB11 PO (11:34)
[2017-10-30] MEDS ORDERED: DIVA250T3 PO (11:34)
[2017-10-30] MEDS ORDERED: TAMS5CAP PO (11:34)
[2017-10-30] MEDS ORDERED: LEVO10%S PO (11:34)
[2017-10-30] MEDS ORDERED: SULF1TAB23 PO (11:34)
[2017-10-30] MEDS ORDERED: LACT PO (11:34)
[2017-10-30] MEDS ORDERED: LEXA10TA PO (11:34)
--- NOTE | 2017-10-30 11:34 | HHI.DS ---
Psychiatry Discharge Summary Inpatient Psychiatric care?: Yes Advance Directive: No Reason Not Provided: not interested Mental Health AdvanceDirective: No Health Care Proxy: No Admission Admission Date Oct 21, 2017 at 22:34 Admission Diagnosis: (1) Schizoaffective disorder, bipolar type ICD Code: F25.0 - Schizoaffective disorder, bipolar type Brief History Mr. Giang is a 27-year-old male with a reported history of bipolar disorder /schizophrenia who presented to the emergency department voluntarily complaining of audiovisual hallucinations. Reviewing the electronic medical record, I note that the patient was psychiatrically admitted here in [address] Alcaraz with a discharge diagnosis of schizoaffective disorder. Patient seen and examined with nurse. Chart reviewed. Case discussed with nursing staff. On my examination today, the patient reports that he has been off of his psychotropic medications for the last 2 months. In the setting of this medication nonadherence he has experienced worsening of his psychosis. He reports that he has been experiencing deprecatory auditory hallucinations as well as occasional command auditory hallucinations to self injure. He denies any command auditory hallucinations to hurt others. He denies any genuine suicidal intent and contracts for safety on the inpatient unit. He denies any other hallucinatory experiences except that he does note that he has what sounds like synesthesia, experiencing generalized body pain in response to loud noises. He endorses some paranoia but denies any ideas of reference or feelings of thought manipulation. Mood has been up and down lately. Sleep is poor, particularly in the last several nights. No hypomanic or manic symptoms noted. No severe depressive symptoms noted. Denies any homicidal ideation. Remainder of the psychiatric ROS is negative. No physical complaints. Past psychiatric history: The patient reports previous diagnoses as noted above. He previously followed at the [facility] although he has apparently been out of treatment for several months at least. His most recent admission was here at [facility]. He denies a history of suicide attempts. Denies a history of violent behavior. He notes that he has been "the best I' ve ever been" when he was taking Haldol 5 mg 3 times daily, Depakote 750 mg a day, Lexapro at uncertain dose and Cogentin 2 mg twice a day. He notes that this regimen "stopped all the voices." He has never been on a long-acting injectable antipsychotic, and I did ask him to consider this option for this hospitalization. Family history: The patient reports that his father has schizophrenia. He denies any family history of suicide or substance use issues. Chemical dependency history: The patient denies any abuse of drugs or alcohol. Social history: The patient is originally from [place]. He is presently homeless. He apparently had been residing with a female cousin but they are "not getting along." He has some college education. He is on SSI. He denies any history. Denies any legal history. Denies any access to guns or firearms. Denies any episcopal or spiritual beliefs. Denies any history of physical, verbal or sexual abuse. Tobacco Use In Past 30 Days: 4 or Less Cigarettes/Day Alcohol Use: Monthly or Less Hospital Course Patient was admitted to a locked, inpatient psychiatric unit. A general medical consultation was obtained and the patient was medically cleared prior to discharge. A general surgical consultation was obtained for incision and drainage of an axillary lesion. Appropriate precautions were in place throughout patient's hospital stay. Patient was seen and examined on the unit by psychiatry and also visited by counselor. Psychotropic medications were adjusted. Patient was initially restarted on his reportedly previously efficacious psychotropic regimen, but he experienced too much grogginess from the Haldol and so was switched to Abilify. Patient tolerated the Abilify much better with no grogginess to speak of and with good control of psychotic symptoms. Patient had improvement in presenting psychiatric symptomatology during the course of his hospital stay. There was no evidence of any suicidality or homicidality on the inpatient unit. The patient remained in good behavioral control and was compliant with medications. Working with the patient, the counselor has arranged for placement in assisted living facility. On the day of discharge: Patient seen and examined with nurse. Chart reviewed. Case discussed with nursing staff. No behavioral issues noted overnight. Case discussed with counselor. On my examination today, the patient feels ready to leave the inpatient psychiatric unit and go to assisted living facility today. He denies any suicidal or homicidal ideation, intent or plan on direct questioning and contracts for safety. Mood is stable, and I can elicit no depressive or hypomanic/manic symptoms in this patient at this time. He denies any audiovisual hallucinations. I can elicit no delusional material. There is no evidence of any impairment in reality construction. He denies side effects from medications. He has no acute physical complaints. Urinary hesitancy is improved. Suicide and violence risk assessment on day of discharge both suggest low imminent risk, and the patient's level of function is adequate for outpatient care. The patient has maximized benefit from this inpatient psychiatric hospital stay and will be discharged to assisted living facility today with psychiatric follow-up as arranged by counselor. Patient is also to follow-up with primary care and with general surgery. I have counseled the patient to abstain from any substances of abuse. I have counseled the patient regarding warning signs for need to return to the psychiatric emergency room as part of a general safety plan. Results Blood Pressure 112 / 63 Vital Signs Date Time Temp Pulse Resp B/P (MAP) Pulse Ox O2 Delivery O2 Flow Rate FiO2 10/30/17 05:15 98.0 84 16 112/63 (79) 98 Laboratory Tests Test 10/27/17 14:05 Laboratory Results Test 10/23/17 07:25 10/26/17 07:50 Cholesterol Level 211 MG/DL (120-200) HDL Cholesterol 62.3 MG/DL (40.0-60.0) Hemoglobin A1c 5.5 % (4.3-6.0) LDL Cholesterol 128 MG/DL (0-99) Triglycerides Level 105 MG/DL (42-150) Valproic Acid (Depakene) Level 65 MCG/ML (50-100) Summary of Procedures I&D of LEFT axillary lesion at the bedside by surgery. Imaging Last Impressions Chest X-Ray 10/29/17 0000 Signed Impressions: Service Date/Time: Sunday, October 29, 2017 15:28 - CONCLUSION: 1. No acute cardiopulmonary disease. Geovany Hurley MD Pending results at discharge: Yes (wound culture) Medications # of Antipsychotic meds at D/C: 1 Approp Antipsych med options 1 - Minimum of three failed multiple trials of monotherapy. 2 - Documented plan to taper to monotherapy due to previous use of multiple meds OR cross-taper in progress at D/C. 3 - Documentation of augmentation of Clozapine. 4 - Justification other than those listed in allowable values 1-3, document here : Discharge Discharge Date: Oct 30, 2017 Discharge Diagnosis: (1) Schizoaffective disorder, bipolar type Diagnosis: Principal (stabilized) ICD Code: F25.0 - Schizoaffective disorder, bipolar type Pt Condition on Discharge: Stable Discharge Disposition: ACLF/SENIOR CARE Discharge Instructions Diet Instructions: As Tolerated, No Restrictions Activities you can perform: Weight Bearing as Marlen Scheduled Appointment: as per counselor's notes New Orders: AMMONIA - 2-3 Days DEPAKENE - 2-3 Days New Medications: Aripiprazole (Aripiprazole) 5 Mg Tab 10 MG PO DAILY for Mental Health for 15 Days, #30 TAB 1 Refill Lactobacillus Acidophilus (Acidophilus/l-Sporogenes) 35 Million Cell-25 Million Cell Tab 1 TAB PO TID for Health for 15 Days, TAB 1 Refill Levocarnitine Liq (Carnitor Liq) 1 Gm/10 Ml Soln 3 ML PO DAILY@0900,1500,2100 for Hyperammonemia for 15 Days, ML 1 Refill Sulfamethoxazole-Trimethoprim (Sulfamethoxazole-Trimethoprim) 800-160 Mg Tab 1 TAB PO Q12HR for Antibiotic for 7 Days, TAB 0 Refills Tamsulosin (Flomax) 0.4 Mg Cap 0.4 MG PO DAILY for Urinary issue for 15 Days, #15 CAP 1 Refill Continued Medications: Divalproex ER (Divalproex ER) 250 Mg Irina 750 MG PO HS for Mental Health for 15 Days, TAB 1 Refill (This prescription has been renewed) Escitalopram (Lexapro) 10 Mg Tab 10 MG PO DAILY for Mental Health for 15 Days, #15 TAB 1 Refill (This prescription has been renewed) Discontinued Medications: Benztropine (Benztropine) 0.5 Mg Tab 2 MG PO BID, #60 TAB 0 Refills Haloperidol (Haloperidol) 5 Mg Tab 5 MG PO TID, TAB 0 Refills Discharge Time <= 30 minutes Mental Status Examination Appearance: Appropriate Consciousness: Alert Orientation: x4 Motor Activity: Other (no motor abnormalities noted. No hand tremors, no dystonias, no dyskinesias.) Speech: Unremarkable Language: Adequate Fund of Knowledge: Adequate Attention and Concentration: Adequate Memory: Unremarkable Mood: Appropriate, Good Affect: Appropriate, Euthymic Thought Process & Associations: Intact, Logical, Goal directed, Linear Thought Content: Appropriate Hallucination Type: None Delusion Type: None Suicidal Ideation: No Suicidal Plan: No Suicidal Intention: No Homicidal Ideation: No Homicidal Plan: No Homicidal Intention: No Insight: Adequate Judgment: Adequate Discharge/Advance Care Plan Health Problems: (1) Schizoaffective disorder, bipolar type Goals to promote your health * To prevent worsening of your condition and complications * To maintain your health at the optimal level Directions to meet your goals Take your medications as prescribed Follow your dietary instruction Follow activity as directed Keep your appointments as scheduled Take your immunizations and boosters as scheduled If your symptoms worsen call your PCP, if no PCP go to Urgent Care Center or Emergency Room For 10/03 questions related to your inpatient stay or results of tests pending at discharge, please contact Dr. Jacky Szymanski at Smoking is Dangerous to Your Health. Avoid second hand smoking Jacky Szymanski MD Oct 30, 2017 11:34
--- NOTE | 2017-10-30 12:20 | HHI.PR ---
Subjective Remarks Follow-up visit for urinary retention and left axilla abscess. Patient seen and examined in room, he had I&D done today by general surgery at bedside today. He reports tolerating procedure well, denies any fevers, chills, nausea, vomiting, diarrhea or pain. He has been discharged form psych standpoint as long as he is cleared by medical and GS stand point. Objective Vitals Vital Signs Date Time Temp Pulse Resp B/P (MAP) Pulse Ox O2 Delivery O2 Flow Rate FiO2 10/30/17 05:15 98.0 84 16 112/63 (79) 98 10/29/17 18:06 98.1 100 18 123/82 (96) 100 I/O 10/29/17 10/29/17 10/29/17 10/30/17 10/30/17 10/30/17 07:00 15:00 23:00 07:00 15:00 23:00 Intake Total 480 ml Balance 480 ml Intake Oral 480 ml Imaging Last Impressions Chest X-Ray 10/29/17 0000 Signed Impressions: Service Date/Time: Sunday, October 29, 2017 15:28 - CONCLUSION: 1. No acute cardiopulmonary disease. Geovany Hurley MD Objective Remarks GENERAL: This is a well-nourished, well-developed patient, in no apparent distress. SKIN: Left axillary with abscess s/p I&D, packed with Iodoform and covered with dry gauze and tape, no surrounding redness or warmth noted, small amount of sanguineus drainage noted. HEAD: Atraumatic. EYES: Pupils equal round and reactive. ENT: Throat without erythema, tonsillar hypertrophy or exudate. Uvula midline. Airway patent. NECK: Trachea midline. CARDIOVASCULAR: Regular rate and rhythm without murmurs, gallops, or rubs. RESPIRATORY: Clear to auscultation. Breath sounds equal bilaterally. No wheezes , rales, or rhonchi. GASTROINTESTINAL: Abdomen soft, non-tender. MUSCULOSKELETAL: Extremities without clubbing, cyanosis, or edema. NEUROLOGICAL: Awake and alert. Moves all extremities, ambulating without assistance. Normal speech. A/P Problem List: (1) Left axillary swelling ICD Code: M79.89 - Other specified soft tissue disorders (2) Schizoaffective disorder, bipolar type ICD Code: F25.0 - Schizoaffective disorder, bipolar type Assessment and Plan Left axillary lesion Possible hidradenitis - wound culture and gram stain positive for Propionibacterium Acnes. Patient afebrile, will D/C Bactrim - s/p I&D by GS at bedside, discussed with patient to provide good phone number to reach him at incase cultures are positive. He is also to followup with his PCP, voiced understanding. Urinary hesitation May be s/t meds. - UA negative, GC/ chlamydia PCR negative. PVR negative - Continue to hold hydroxyzine and Benadryl. - Continue Flomax. Psychiatric disorder - care per psychiatry. PPx: Ambulation Plan discussed with patient and nurse. Patient to be D/C home today as long as GS okay as well. Discussed with patient pending cultures, voiced understanding. Aroldo Nielson Oct 30, 2017 12:20
--- NOTE | 2017-10-30 15:05 | PD.OP ---
Operative Report Date of Surgery: Oct 30, 2017 Preoperative Diagnosis: (1) Left axillary swelling Postoperative Diagnosis: (1) Axillary abscess Procedure: Incision and drainage of LEFT axillary abscess Anesthesia: Lidocaine Surgeon: Quin Gill supervised by Dr. Moyer Operation and Findings: This is a 27 year old male with a recurrent LEFT axillary abscess. A proper time out was completed with Mendoza REID. The patient was verbally able to tell what procedure he was having; his name and . His wrist band conformed name and last four digits of the V number. Consents present at time of time out. The area was prepped with three Betadine prep sticks. 1% lidocaine with epi was injected to the affected area. A #11 scalpel was used to incision in abscess. A culture was taken of the pus. About 2 cc of pus was manually evacuated. The area was cleaned thoroughly with normal saline. The two openings were packed with Iodoform packing and a sterile 4x4 dressing was placed and secured with tape. The patient tolerated the procedure well with no apparent complications. All supplies were disposed of. All sharps were collected and disposed of in sharps container. EBL < 2cc Quin Gill/First Maricel CANTU Oct 30, 2017 15:05
== END 2017-10-30 14:30 | DRG 885 ==
LOC: NEPD 14:00 → NEDA 22:34 → H260 23:10
PROVIDERS: ADMIT Psychiatry & Neurology Psychiatry; ATTEND Psychiatry & Neurology Psychiatry
PROC: 0X950ZX Drainage of Left Axilla, Open Approach, Diagnostic (ICD-10-PCS; principal; 2017-10-30)
DX: F25.0 Schizoaffective disorder, bipolar type (principal); Z91.14 Patient's other noncompliance with medication regimen; L02.412 Cutaneous abscess of left axilla; Z59.0 Homelessness; R39.11 Hesitancy of micturition; Z81.8 Family history of other mental and behavioral disorders
CPT/HCPCS: 71045; 80048; 80061; 80076; 80164; 80307; 81001; 82140; 83036; 84443; 85025; 87070; 87185; 87205; 87491; 87591; 93005; Q0163